=== PATIENT | male | born 1990 | race Caucasian/White ===

== ENCOUNTER 2018-12-03 15:04 | Emergency (ER) | payer MEDICAID ==
[~2018-12-03] VITALS: Ht 185.4 cm; Wt 118.2 kg
[~2018-12-03 15:04] MED LIST: DOCU-28 PO; GUAI120015 PO; MAGN296S50 PO
[2018-12-03 15:37] VITALS: BP 156/101
[2018-12-03] MEDS ORDERED: NAPR-56 PO (15:51)
== END 2018-12-03 16:01 | disposition home or self-care (01) ==
LOC: ER 15:05
DX: M25.572 Pain in left ankle and joints of left foot (principal); R60.0 Localized edema; G89.29 Other chronic pain; Z90.5 Acquired absence of kidney; Z88.1 Allergy status to other antibiotic agents; Z88.8 Allergy status to other drugs, medicaments and biological substances
CPT/HCPCS: 73610; 99283

== ENCOUNTER 2019-04-14 08:25 | Emergency (ER) | payer MEDICAID ==
[~2019-04-14] VITALS: Ht 185.4 cm; Wt 113.6 kg
[2019-04-14] MEDS ORDERED: ondansetron/PF 4mg/2ml inj IV ONE (09:10)
[2019-04-14] MEDS ORDERED: pantoprazole 40 MG vial IV ONE (09:10)
[2019-04-14] MEDS ORDERED: normal saline 1000ML IV soln IVB ONE (09:10)
[2019-04-14 09:29] LABS: BASOPHILS % (AUTO) 0.3 % (0-1); EOSINOPHILS % (AUTO) 0 % (0-6); HEMATOCRIT 43.2 % (42.0-52.0); HEMOGLOBIN 14.7 g/dl (14.0-17.9); LYMPHOCYTES # (AUTO) 0.8 X10'3 (1.1-4.8); LYMPHOCYTES % (AUTO) 7.5 % (21-51); MEAN CORPUSCULAR HEMOGLOBIN 30.5 PG (27.0-31.0); MEAN CORPUSCULAR HGB CONC 34.1 g/dL (33.0-36.5); MEAN CORPUSCULAR VOLUME 89.6 FL (78-98); MEAN PLATELET VOLUME 9.1 FL (7.4-10.4); MONOCYTES # (AUTO) 0.2 X10'3 (0-0.9); MONOCYTES % (AUTO) 2.1 % (2-12); NEUTROPHILS # (AUTO) 9.5 X10'3 (1.8-7.7); NEUTROPHILS % (AUTO) 90.1 % (42-75); PLATELET COUNT 252 X10'3 (140-440); RED BLOOD COUNT 4.82 X10'6 (4.70-6.10); RED CELL DISTRIBUTION WIDTH 12.7 % (11.5-14.5); WHITE BLOOD COUNT 10.5 X10'3 (4.5-11.0)
[2019-04-14 09:45] LABS: ALANINE AMINOTRANSFERASE 37 U/L (12-78); ALBUMIN 4.3 G/DL (3.4-5.0); ALKALINE PHOSPHATASE 86 IU/L (46-116); ANION GAP 9 (8-16); BILIRUBIN,TOTAL 0.8 MG/DL (0.1-1.0); BLOOD UREA NITROGEN 11 MG/DL (7-18); BUN/CREATININE RATIO 11.8 (5.4-32.0); CALCIUM 9.1 MG/DL (8.5-10.1); CHLORIDE 101 MMOL/L (99-107); CREATININE 0.93 MG/DL (0.60-1.10); GLUCOSE 107 MG/DL (70-104); LIPASE 100 U/L (73-393); SODIUM 136 MMOL/L (135-145); TOTAL CARBON DIOXIDE 26.5 MMOL/L (24-32); TOTAL PROTEIN 8.5 G/DL (6.4-8.2); eGFR > 90 ML/MIN
[2019-04-14 09:51] LABS: ASPARTATE AMINO TRANSFERASE 32 U/L (10-37); POTASSIUM 3.9 MMOL/L (3.5-5.1)
[2019-04-14 10:42] VITALS: BP 156/93
[2019-04-14] MEDS ORDERED: PANT-47 PO (11:40)
[2019-04-14] MEDS ORDERED: metoclopramide 5 mg/ml inj IV ONE (11:40)
[2019-04-14] MEDS ORDERED: ONDA8TAB13 PO (11:40)
== END 2019-04-14 11:59 | disposition home or self-care (01) ==
LOC: ER 08:25
DX: R11.10 Vomiting, unspecified (principal); R10.13 Epigastric pain; F12.90 Cannabis use, unspecified, uncomplicated; G89.29 Other chronic pain; Z90.5 Acquired absence of kidney; Z88.1 Allergy status to other antibiotic agents; Z88.8 Allergy status to other drugs, medicaments and biological substances; Z79.899 Other long term (current) drug therapy
CPT/HCPCS: 36415; 80053; 83690; 85025; 96374; 96375; 99283; C9113; J2405; J2765; J7030; 96361

== ENCOUNTER 2019-07-05 13:37 | Emergency (ER) | payer MEDICAID ==
[~2019-07-05] VITALS: Ht 185.4 cm; Wt 106.7 kg
[~2019-07-05 13:37] MED LIST changes: +ONDA8TAB13 PO; +PANT-47 PO
[2019-07-05 14:53] LABS: BASOPHILS % (AUTO) 0.1 % (0-1); EOSINOPHILS % (AUTO) 0 % (0-6); HEMATOCRIT 51.4 % (42.0-52.0); HEMOGLOBIN 17.8 g/dl (14.0-17.9); LYMPHOCYTES # (AUTO) 0.8 X10'3 (1.1-4.8); LYMPHOCYTES % (AUTO) 7.3 % (21-51); MEAN CORPUSCULAR HEMOGLOBIN 31.2 PG (27.0-31.0); MEAN CORPUSCULAR HGB CONC 34.5 g/dL (33.0-36.5); MEAN CORPUSCULAR VOLUME 90.4 FL (78-98); MEAN PLATELET VOLUME 9.8 FL (7.4-10.4); MONOCYTES # (AUTO) 0.5 X10'3 (0-0.9); MONOCYTES % (AUTO) 4.5 % (2-12); NEUTROPHILS # (AUTO) 9.5 X10'3 (1.8-7.7); NEUTROPHILS % (AUTO) 88.1 % (42-75); PLATELET COUNT 291 X10'3 (140-440); RED BLOOD COUNT 5.69 X10'6 (4.70-6.10); RED CELL DISTRIBUTION WIDTH 12.1 % (11.5-14.5); WHITE BLOOD COUNT 10.8 X10'3 (4.5-11.0)
[2019-07-05 15:02] LABS: ALANINE AMINOTRANSFERASE 69 U/L (12-78); ALBUMIN 5.4 G/DL (3.4-5.0); ALBUMIN/GLOBULIN RATIO 1.1 (1.1-1.5); ALKALINE PHOSPHATASE 98 IU/L (46-116); ANION GAP 15 (8-16); ASPARTATE AMINO TRANSFERASE 57 U/L (10-37); BILIRUBIN,TOTAL 1.4 MG/DL (0.1-1.0); BLOOD UREA NITROGEN 32 MG/DL (7-18); CALCIUM 10.9 MG/DL (8.5-10.1); CHLORIDE 89 MMOL/L (99-107); CREATININE 3.21 MG/DL (0.60-1.10); GLUCOSE 132 MG/DL (70-104); POTASSIUM 3.9 MMOL/L (3.5-5.1); SODIUM 129 MMOL/L (135-145); TOTAL PROTEIN 10.3 G/DL (6.4-8.2); eGFR 24 ML/MIN
[2019-07-05] MEDS ORDERED: normal saline 1000ml 1,000 ML IV STA (15:09)
[2019-07-05 15:10] LABS: LARGE PLATELETS FEW; PLATELET ESTIMATE NORMAL
[2019-07-05] MEDS ORDERED: ondansetron/PF 4mg/2ml inj IV ONE (15:20)
--- NOTE | 2019-07-05 15:45 | NUR ---
PATIENT UNABLE TO VOID AT THIS TIME,URINAL AT BEDSIDE.
[2019-07-05 16:44] LABS: CLARITY,URINE CLOUDY (Clear); COLOR,URINE YELLOW (Yellow); GLUCOSE, URINE NEGATIVE (Neg); KETONES,URINE 15 mg/dl (Neg); LEUKOCYTE ESTERASE ,URINE NEGATIVE (Neg); NITRITES, URINE NEGATIVE (Neg); OCCULT BLOOD,URINE SMALL (Neg); PH,URINE 5.5 (4.8-8.0); PROTEIN,URINE 100 mg/dl (Neg)
[2019-07-05 16:46] LABS: UA COLLECTION TYPE CLN CATCH MIDSTREAM
[2019-07-05 16:51] LABS: BACTERIA,URINE FEW /HPF (Neg); CAL OXALATE CRYSTALS 3+ /HPF (NEGATIVE); HYALINE CASTS >30 /LPF (NEGATIVE); MUCUS STRANDS MANY /LPF (Neg); SQUAMOUS EPITHELIAL CELL,UR FEW /LPF (FEW)
[2019-07-05 17:18] LABS: ALBUMIN 4.2 G/DL (3.4-5.0); ANION GAP 13 (8-16); BLOOD UREA NITROGEN 30 MG/DL (7-18); BUN/CREATININE RATIO 11.6 (5.4-32.0); CALCIUM 9.1 MG/DL (8.5-10.1); CHLORIDE 95 MMOL/L (99-107); CREATININE 2.58 MG/DL (0.60-1.10); GLUCOSE 106 MG/DL (70-104); POTASSIUM 3.7 MMOL/L (3.5-5.1); SODIUM 132 MMOL/L (135-145); TOTAL CARBON DIOXIDE 23.7 MMOL/L (24-32); eGFR 30 ML/MIN
[2019-07-05] MEDS ORDERED: ONDA4TAB6 PO (17:32)
[2019-07-05 18:07] VITALS: BP 159/98
== END 2019-07-05 18:13 | disposition home or self-care (01) ==
LOC: ER 13:38
DX: T67.5XXA Heat exhaustion, unspecified, initial encounter (principal); E86.0 Dehydration; R11.2 Nausea with vomiting, unspecified; R42 Dizziness and giddiness; G89.29 Other chronic pain; F12.90 Cannabis use, unspecified, uncomplicated; Z98.890 Other specified postprocedural states; Z88.2 Allergy status to sulfonamides; Z88.1 Allergy status to other antibiotic agents; Z79.899 Other long term (current) drug therapy; X58.XXXA Exposure to other specified factors, initial encounter; Y93.89 Activity, other specified; Y92.89 Other specified places as the place of occurrence of the external cause; Y99.8 Other external cause status
CPT/HCPCS: 36415; 80048; 80053; 81001; 85025; 85610; 87088; 96361; 96374; 99283; J2405; J7030